=== PATIENT | male | born 1980 | race African-American/Black ===

== ENCOUNTER 2023-05-07 14:13 | Emergency (ER) | payer SELFPAY ==
[2023-05-07 15:23] LABS: SARS-CoV-2 NAA Rapid Test Not Detected (NotDetected)
[2023-05-07 16:02] LABS: Hematocrit 49.1 % (42.0-52.0); Hemoglobin 16.1 g/dL (14.0-18.0); Manual Diff?? YES; Mean Corpuscular HGB CONC 32.8 g/dL (32.0-36.0); Mean Corpuscular Hemoglobin 25.4 pg (27.0-31.0); Mean Corpuscular Volume 77.3 fl (78.0-98.0); Mean Platelet Volume 10.5 fL (7.4-10.4); Platelet Count 199 10x3/uL (130-400); RBC Distribution Width 12.3 % (11.5-14.5); Red Blood Cell (RBC) Count 6.35 mill/uL (4.70-6.10); White Blood Cell (WBC) Count 8.4 10x3/uL (4.8-10.8)
[2023-05-07] MEDS ORDERED: Ondansetron PF 4 MG/2 ML Vial ONE (16:02)
[2023-05-07 16:11] LABS: Delete Auto Diff?? YES
[2023-05-07 16:39] LABS: Band 3 % (5-11); CellaVision Operator ID LAB.KB; Large Platelets 2.6 % (0-5); Lymphocytes 13 % (21-51); Monocytes 9 % (0-10); Neutrophil 71 % (42-75); Platelet Adequacy Comment Platelets Normal; RBC Morphology Within Normal Limits; Reactive Lymphocytes 3 % (0-10); Smudge Cells 6.8 %; Total Cell Count 117
[2023-05-07 16:46] LABS: Albumin 4.6 g/dL (3.5-5.0)
[2023-05-07 16:47] LABS: Calcium 9.4 mg/dL (7.8-10.44); Chloride 87 mmol/L (98-107); Potassium 4.1 mmol/L (3.5-5.1); Sodium 125 mmol/L (136-145)
[2023-05-07 16:48] LABS: Globulin 3.3 g/dL (2.4-3.5); Glucose 101 mg/dL (70-105); Protein, Total 7.9 g/dL (6.0-8.3)
[2023-05-07 16:50] LABS: Anion Gap 15 mmol/L (10-20); Bilirubin, Total 1.1 mg/dL (0.2-1.2); Carbon Dioxide 27 mmol/L (22-29)
[2023-05-07 16:51] LABS: Alkaline Phosphatase 61 U/L (40-110)
[2023-05-07 16:52] LABS: BUN (Urea Nitrogen) 10 mg/dL (8.9-20.6); Calc. Creatinine Clearance 0 mL/min (70-130); Estimated GFR 88
[2023-05-07 16:53] LABS: AST (SGOT) 92 U/L (5-34)
[2023-05-07 16:54] LABS: ALT (SGPT) 39 U/L (8-55)
== END 2023-05-07 16:55 | disposition home or self-care (01) ==
LOC: ERS 14:13
DX: J10.1 Influenza due to other identified influenza virus with other respiratory manifestations (principal); R00.0 Tachycardia, unspecified
CPT/HCPCS: 36415; 71045; 80053; 85025; 93005; 96361; 96374; J2405

== ENCOUNTER 2024-05-10 10:07 | Emergency (ER) | payer SELFPAY ==
[2024-05-10 11:06] LABS: #Basophils 0.05 10x3/uL (0.0-0.2); %Basophils 0.3 % (0.0-1.0); %Eosinophils 0.4 % (0.0-10.0); %Lymphocytes 6.8 % (21.0-51.0); %Monocytes 5.7 % (0.0-10.0); %Neutrophils 86.5 % (42.0-75.0); Hemoglobin 16.5 g/dL (14.0-18.0); Mean Corpuscular HGB CONC 31.7 g/dL (32.0-36.0); Mean Corpuscular Hemoglobin 25.3 pg (27.0-31.0); Mean Corpuscular Volume 79.9 fL (78.0-98.0); Mean Platelet Volume 9.7 fL (7.4-10.4); Platelet Count 373 10x3/uL (130-400); Red Blood Cell (RBC) Count 6.51 mill/uL (4.70-6.10)
[2024-05-10 11:26] LABS: ALT (SGPT) 24 U/L (8-55); AST (SGOT) 21 U/L (5-34); Albumin 4.9 g/dL (3.5-5.0); Alkaline Phosphatase 70 U/L (40-110); Anion Gap 13 mmol/L (10-20); BUN (Urea Nitrogen) 16 mg/dL (8.9-20.6); Bilirubin, Total 1.2 mg/dL (0.2-1.2); Calc. Creatinine Clearance 0 mL/min (70-130); Calcium 10.8 mg/dL (7.8-10.44); Carbon Dioxide 27 mmol/L (22-29); Chloride 104 mmol/L (98-107); Estimated GFR 81; Globulin 4.3 g/dL (2.4-3.5); Glucose 107 mg/dL (70-105); Potassium 4.4 mmol/L (3.5-5.1); Protein, Total 9.2 g/dL (6.0-8.3); Sodium 140 mmol/L (136-145)
[2024-05-10 11:48] LABS: Lipase 20 U/L (8-78); Troponin I Less than 0.010 ng/mL (< 0.028)
[2024-05-10] MEDS ORDERED: Iopamidol-370 76% 500 ML MDV (1 ML CHARGE) ONE (12:07)
[2024-05-10] MEDS ORDERED: Ketorolac Tromethamine 30 MG (1 mL) VIAL ONE (13:01)
[2024-05-10] MEDS ORDERED: Ondansetron PF 4 MG/2 ML Vial ONE (13:01)
== END 2024-05-10 14:56 | disposition home or self-care (01) ==
LOC: ERS 10:07
DX: B34.9 Viral infection, unspecified (principal); R19.7 Diarrhea, unspecified; R11.10 Vomiting, unspecified; I25.2 Old myocardial infarction
CPT/HCPCS: 36415; 71045; 74177; 80053; 83690; 84484; 85025; 87428; 93005; 96374; 96375; J1885; J2405; Q9967